=== PATIENT | male | born 1940 | race Caucasian/White ===

== ENCOUNTER → 2018-09-28 | Outpatient (CLI) | payer BC ==
--- NOTE | 2018-09-28 13:34 | PCVCIMAG ---
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, Pleural effeusion x 2 months, drained x2 last 2 weeks 2D Dimensions IVSd: 8.32 (7-11mm)LVOT Diam: 22.92 (18-24mm) LVDd: 42.91 mm PWd: 9.83 (7-11mm)Ascending Ao: 37.26 (22-36mm) LVDs: 30.92 (25-40mm) Left Atrium: 38.51 (27-40mm) Aortic Root: 29.04 mm LV Single Plane 4CH: 50.15 % LV Single Plane 2CH: 63.19 % Biplane EF: 56.9 % Volumes Left Atrial Volume (Systole) Single Plane 4CH: 69.64 mLSingle Plane 2CH: 78.62 mL Biplane LA Volume: 76.00 mLLA ESV Index: 38.00 mL/m2 Aortic Valve AoV Peak Maximilian.: 1.10 m/s AO Peak Gr.: 6.55 mmHgLVOT Max P.21 mmHg LVOT Max V: 0.74 m/s [place] Vmax: 2.77 cm2 Mitral Valve MV E Max Maximilian.: 0.76 m/s MV PHT: 65.51 ms MVA (PHT): 3.36 cm2 IVRT: 107.27 ms TDI E/Lateral E': 5.85E/Medial E': 7.60 Medial E' Maximilian.: 0.10 m/s Lateral E' Maximilian.: 0.13 m/s Pulmonary Valve PV Peak Maximilian.: 0.90 m/sPV Peak Gr.: 3.23 mmHg Tricuspid Valve TR Peak Maximilian.: 2.28 m/s TR Peak Gr.: 20.78 mmHg TV Vmax: 0.72 m/sPA Pressure: 28.00 mmHg Left Ventricle The left ventricle is normal size. There is normal LV segmental wall motion. There is normal left ventricular wall thickness. Left ventricular systolic function is normal. The left ventricular ejection fraction is within the normal range. LVEF is 55-60%. This study is not technically sufficient to allow evaluation of the LV diastolic function due to atrial fibrillation. Right Ventricle The right ventricle is normal size. The right ventricular systolic function is normal. Atria Left atrium is mildly dilated. The right atrium size is normal. Aortic Valve Aortic valve is trileaflet. The Aortic valve is mildly sclerotic. No aortic regurgitation is present. There is no aortic valvular stenosis. Mitral Valve The mitral valve is normal in structure. Trace to mild mitral regurgitation. No evidence of mitral valve stenosis. Tricuspid Valve The tricuspid valve is normal in structure. Mild tricuspid regurgitation with a PA pressure of 28 mmHg. Pulmonic Valve The pulmonary valve is normal in structure. There is no pulmonic valvular regurgitation. Great Vessels The aortic root is normal in size. IVC is normal in size and collapses >50% with inspiration. Pericardium There is no pericardial effusion. Small pleural effusion. <Conclusion> The left ventricle is normal size. There is normal left ventricular wall thickness. LVEF is 55-60%. This study is not technically sufficient to allow evaluation of the LV diastolic function due to atrial fibrillation. The right ventricle is normal size. Left atrium is mildly dilated. Aortic valve is trileaflet. The Aortic valve is mildly sclerotic. There is no aortic valvular stenosis. Trace to mild mitral regurgitation. Mild tricuspid regurgitation with a PA pressure of 28 mmHg. The aortic root is normal in size. There is no pericardial effusion.
== END | disposition home or self-care (01) ==
LOC: PCVCIMAG 12:11
PROVIDERS: ATTEND Internal Medicine Cardiovascular Disease
DX: I08.3 Combined rheumatic disorders of mitral, aortic and tricuspid valves (principal); I48.91 Unspecified atrial fibrillation; R60.0 Localized edema; J90 Pleural effusion, not elsewhere classified
CPT/HCPCS: 93306